=== PATIENT | male | born 1980 | race Caucasian/White ===

== ENCOUNTER 2017-08-23 17:38 | Inpatient (IN) | payer OTHER ==
[2017-08-23 17:44] VITALS: BMI 23.6
--- NOTE | 2017-08-23 22:06 | HP ---
COWS - Scale Resting Pulse: 0= [place] 80 or Below Sweatin= Chills/Flushing Restless Observation: 3= Extraneous Movement Pupil Size: 0= Normal to Room Light Bone or Joint Aches: 2= Severe Diffuse Aches Runny Nose/ Eye Tearin= Runny Nose/Eyes GI Upset > 30mins: 1= Stomach Cramp Tremor Observation: 2= Slight Tremor Visible Yawning Observation: 1= 1-2x During Session Anxiety or Irritability: 2=Irritable/Anxious Goose Flesh Skin: 0=Smooth Skin COWS Score: 14 CIWA Score - CIWA Score Nausea/Vomitin-Mild Nausea/No Vomiting Muscle Tremors: 4-Moderate,w/Arms Extend Anxiety: 4-Mod. Anxious/Guarded Agitation: 4-Moderately Restless Paroxysmal Sweats: 1-Minimal Palms Moist Orientation: 0-Oriented Tacttile Disturbances: 0-None Auditory Disturbances: 0-None Visual Disturbances: 0-None Headache: 0-None Present CIWA-Ar Total Score: 14 Admission [facility] - HPI Chief Complaint: WITHDRAWAL SX Allergies/Adverse Reactions: Allergies Allergy/AdvReac Type Severity Reaction Status Date / Time No Known Allergies Allergy Verified 09/04/15 16:00 History of Present Illness: 36 YEARS OLD MALE WITH LONG HISTORY OF ALCOHOL HEROIN NICOTINE DEPENDENCE HAS DEPRESSION IS ADMITTED TO DETOX Exam Limitations: No Limitations - Ebola screening Have you traveled outside of the country in the last 21 days: No Have you had contact with anyone from an Ebola affected area: No Have you been sick,other than usual withdrawal symptoms: No Do you have a fever: No - Review of Systems Constitutional: Chills, Loss of Appetite, Unintentional Wgt. Loss, Unexplained wgt Loss EENT: reports: Dental Problems (LEFT LOWER TOOTH LOOSE PAIN) Respiratory: reports: No Symptoms reported Cardiac: reports: No Symptoms Reported GI: reports: Nausea, Poor Appetite, Poor Fluid Intake, Indigestion, Abdominal cramping : reports: No Symptoms Reported Musculoskeletal: reports: Back Pain, Joint Pain, Muscle Pain, Neck Pain Integumentary: reports: Change in Color (BOTH INNER ELBOWS) Neuro: reports: Tremors Endocrine: reports: No Symptoms Reported Hematology: reports: No Symptoms Reported Psychiatric: reports: Judgement Intact, Orientated x3, Anxious, Depressed Other Systems: Reviewed and Negative Patient History - Patient Medical History Hx Anemia: No Hx Asthma: No Hx Chronic Obstructive Pulmonary Disease (COPD): No Hx Cancer: No Hx Cardiac Disorders: No Hx Congestive Heart Failure: No Hx Hypertension: No Hx Hypercholesterolemia: No Hx Pacemaker: No HX Cerebrovascular Accident: No Hx Seizures: No Hx Dementia: No Hx Diabetes: No Hx Gastrointestinal Disorders: No Hx Liver Disease: Yes Hx Genitourinary Disorders: No Hx Sexually Transmitted Disorders: No Hx Renal Disease (ESRD): No Hx Thyroid Disease: No Hx Human Immunodeficiency Virus (HIV): No Hx Hepatitis C: Yes (NEEDS TREATMENT) Hx Depression: No Hx Suicide Attempt: No Hx Bipolar Disorder: No Hx Schizophrenia: No - Patient Surgical History Past Surgical History: No - PPD History Previous Implant?: Yes Documented Results: Negative w/o proof Implanted On Prior [facility] Admission?: Yes Date: 09/06/15 PPD to be Administered?: Yes - Smoking Cessation Smoking history: Current every day smoker Have you smoked in the past 12 months: Yes Aproximately how many cigarettes per day: 40 Cigars Per Day: 0 Hx Chewing Tobacco Use: No Initiated information on smoking cessation: Yes 'Breaking Loose' booklet given: 08/23/17 - Substance & Tx. History Hx Alcohol Use: Yes Hx Substance Use: Yes Substance Use Type: Alcohol, Cocaine, Heroin Hx Substance Use Treatment: Yes (2015) - Substances Abused Alcohol Route: Oral Frequency: Daily Amount used: [id number] Age of first use: 9 Date of Last Use: 08/22/17 Heroin Route: Injection Frequency: Daily Amount used: 15 BAGS Age of first use: 12 Date of Last Use: 08/23/17 Family Disease History - Family Disease History Family Disease History: Diabetes: Grandparent, Mother (ALCOHOL/NO CONTACT), Heart Disease: Father (SC X2), Other: Mother, Brother (ALCOHOL/NO CONTACT) Admission Physical Exam [facility] - Vital Signs Vital Signs: Vital Signs - 24 hr 08/23/17 17:41 Temperature 98.8 F Pulse Rate 73 Respiratory 18 Rate Blood Pressure 140/88 - Physical General Appearance: Yes: Appropriately Dressed, Mild Distress, Thin, Tremorous, Irritable, Sweating, Anxious HEENTM: Yes: Hearing grossly Normal, Normal ENT Inspection, Normocephalic, Normal Voice, Other (LEFT LOWER TOOTH ACHE BEGIN AMXOCILLINE 500 MG Q8H X 7 DAYS LIDOCAIN MM TID) Respiratory: Yes: Chest Non-Tender, Lungs Clear, Normal Breath Sounds, No Respiratory Distress, No Accessory Muscle Use Neck: Yes: Supple, Trachea in good position Breast: Yes: Breasts Symetrical Cardiology: Yes: Regular Rhythm, Regular Rate, S1, S2 Abdominal: Yes: Non Tender, Soft, Increased Bowel Sounds Genitourinary: Yes: Within Normal Limits Back: Yes: Normal Inspection Musculoskeletal: Yes: full range of Motion, Gait Steady, Back pain, Muscle Pain Extremities: Yes: Normal Range of Motion, Non-Tender, Tremors Neurological: Yes: Alert, Motor Strength 5/5, Normal Mood/Affect, Normal Response Integumentary: Yes: Warm, Track Cardozo Lymphatic: Yes: Within Normal Limits - Diagnostic (1) Nicotine dependence Current Visit: Yes Status: Acute Qualifiers: Nicotine product type: cigarettes Substance use status: in withdrawal Qualified Code(s): F17.213 - Nicotine dependence, cigarettes, with withdrawal (2) Weight loss Current Visit: Yes Status: Acute (3) Hepatitis C Current Visit: Yes Status: Chronic Qualifiers: Viral hepatitis chronicity: carrier Qualified Code(s): B18.2 - Chronic viral hepatitis C (4) GERD (gastroesophageal reflux disease) Current Visit: Yes Status: Chronic Qualifiers: Esophagitis presence: without esophagitis Qualified Code(s): K21.9 - Gastro -esophageal reflux disease without esophagitis (5) Alcohol dependence with uncomplicated withdrawal Current Visit: Yes Status: Acute (6) Opioid dependence with withdrawal Current Visit: Yes Status: Acute Cleared for Admission S - Detox or Rehab [facility] Level of Care: Medically Managed Detox Regimen/Protocol: Methadone/Librium [facility] Breath Alcohol Content Breath Alcohol Content: 0 Urine Drug Screen - Results Drug Screen Negative: No Urine Drug Screen Results: KASSIDY-Cocaine, OPI-Opiates
[2017-08-23] MEDS ORDERED: LOPERAMIDE HCL 2 MG CAPSULE PO PRN (22:12)
[2017-08-23] MEDS ORDERED: guaiFENesin/D-METHORPHAN HB 10 ML UNIT-DOSE CUPS PO PRN (22:12)
[2017-08-23] MEDS ORDERED: METHADONE HCL 10 MG TABLET (FOR DETOX USE ONLY) PO ONE ×2 (22:12→23:00)
[2017-08-23] MEDS ORDERED: MAG HYDROX/AL HYDROX/SIMETH 30 ML UNIT-DOSE CUP PO PRN (22:12)
[2017-08-23] MEDS ORDERED: IBUPROFEN 400 MG TABLET (FP) PO PRN (22:12)
[2017-08-23] MEDS ORDERED: MAGNESIUM CITRATE 300 ML BOTTLE PO PRN (22:12)
[2017-08-23] MEDS ORDERED: MAGNESIUM HYDROX 2400MG/30ML ORAL SUSPENSION 30 ML CUP PO PRN (22:12)
[2017-08-23] MEDS ORDERED: NICOTINE POLACRILEX 4 MG GUM BC PRN (22:12)
[2017-08-23] MEDS ORDERED: P-EPHED 60MG/TRIPROLIDI 2.5MG TABLET PO PRN (22:12)
[2017-08-23] MEDS ORDERED: MENTHOL/PHENOL 1 EACH UD MM PRN (22:12)
[2017-08-23] MEDS: chlordiazePOXIDE HCL 25 MG CAPSULE PO SCH (23:22)
[2017-08-23] MEDS: AMOXICILLIN 500 MG CAPSULE (FP) PO SCH (23:22)
[2017-08-23] MEDS: cloNIDine HCL 0.1 MG TABLET PO PRN (23:22)
[2017-08-23] MEDS: ACETAMINOPHEN 325 MG TABLET (FP) PO PRN (23:23)
[2017-08-24 05:04] LABS: URINE APPEARANCE CLOUDY; URINE BILIRUBIN NEGATIVE (NEGATIVE); URINE BLOOD NEGATIVE (NEGATIVE); URINE COLOR YELLOW; URINE GLUCOSE (UA) NEGATIVE (NEGATIVE); URINE KETONE NEGATIVE (NEGATIVE); URINE LEUK ESTERASE NEGATIVE (NEGATIVE); URINE NITRITE NEGATIVE (NEGATIVE); URINE PROTEIN NEGATIVE (NEGATIVE)
[2017-08-24] MEDS: chlordiazePOXIDE HCL 25 MG CAPSULE PO SCH ×4 (05:56→22:39)
[2017-08-24] MEDS: METHOCARBAMOL 500 MG TABLET PO SCH ×3 (05:57→22:39)
[2017-08-24] MEDS: AMOXICILLIN 500 MG CAPSULE (FP) PO SCH ×3 (05:57→22:39)
[2017-08-24] MEDS ORDERED: METHADONE HCL 10 MG TABLET (FOR DETOX USE ONLY) PO SCH (10:00)
[2017-08-24 10:23] LABS: CHLORIDE 104 mmol/L (98-107); SODIUM 139 mmol/L (136-145)
[2017-08-24] MEDS: NICOTINE 21 MG/24 HOURS TOPICAL PATCH TD SCH (10:28)
[2017-08-24] MEDS: RANITIDINE HCL 150 MG TABLET (FP) PO SCH ×2 (10:28→22:39)
[2017-08-24] MEDS: PRENATAL VITAMINS W/ FOLIC ACID TABLET (FP) PO SCH (10:28)
--- NOTE | 2017-08-24 10:28 | PN ---
[facility] CIWA - CIWA Score Nausea/Vomitin-No Nausea/No Vomiting Muscle Tremors: 4-Moderate,w/Arms Extend Anxiety: 3 Agitation: 3 Paroxysmal Sweats: 3 Orientation: 0-Oriented Tacttile Disturbances: 0-None Auditory Disturbances: 0-None Visual Disturbances: 0-None Headache: 0-None Present CIWA-Ar Total Score: 13 BHS COWS - Scale Resting Pulse: 0= [place] 80 or Below Sweatin=Flushed/Facial Moisture Restless Observation: 1= Difficult to Sit Still Pupil Size: 0= Normal to Room Light Bone or Joint Aches: 2= Severe Diffuse Aches Runny Nose/ Eye Tearin= Runny Nose/Eyes GI Upset > 30mins: 2= Nausea/Diarrhea Tremor Observation of Outstretched Hands: 2= Slight Tremor Visible Yawning Observation: 1= 1-2x During Session Anxiety or Irritability: 2=Irritable/Anxious Goose Flesh Skin: 3=Piloerection COWS Score: 17 S Progress Note (SOAP) Subjective: shakes sweats agitation anxiety body aches interrupted sleep Objective: 08/24/17 10:27 Vital Signs Temperature 98.6 F 08/24/17 10:00 Pulse Rate 66 08/24/17 10:00 Respiratory Rate 16 08/24/17 10:00 Blood Pressure 149/83 08/24/17 10:00 O2 Sat by Pulse Oximetry (%) Laboratory Tests 08/23/17 06:30 Urine Color Yellow Urine Appearance Cloudy Urine pH 7.0 Ur Specific [place] 1.023 Urine Protein Negative Urine Glucose (UA) Negative Urine Ketones Negative Urine Blood Negative Urine Nitrite Negative Urine Bilirubin Negative Urine Urobilinogen 2.0 Ur Leukocyte Esterase Negative labs pending aaox3 ambulating no acute distress Assessment: 08/24/17 10:27 withdrawal sx Plan: continue detox increase fluids labs pending
[2017-08-24 10:31] LABS: HEMATOCRIT 43.6 % (35.4-49); HEMOGLOBIN 14.2 GM/dL (11.7-16.9); MCH 28.8 pg (25.7-33.7); MCHC 32.5 g/dl (32.0-35.9); MEAN CELL VOLUME 88.4 fl (80-96); MEAN PLT VOLUME 8.6 fl (7.5-11.1); PLATELET COUNT 283 K/MM3 (134-434); RBC 4.92 M/mm3 (4.00-5.60); RDW 14.1 % (11.9-15.9); WHITE BLOOD COUNT 7.9 K/mm3 (4.0-10.0)
[2017-08-24 10:38] LABS: ALBUMIN 3.3 g/dl (3.4-5.0); ALK PHOS 102 U/L (45-117); ANION GAP 8 (8-16); BILIRUBIN,TOTAL 0.6 mg/dL (0.2-1.0); BLOOD UREA NITROGEN 16 mg/dL (7-18); CALCIUM 8.7 mg/dL (8.5-10.1); CO2 27 mmol/L (21-32); CREATININE 0.7 mg/dL (0.7-1.3); GLUCOSE,RANDOM 90 mg/dL (74-106); SGOT/AST 30 U/L (15-37); SGPT/ALT 42 U/L (12-78); TOT PROT 7.2 g/dl (6.4-8.2)
[2017-08-24] MEDS: chlordiazePOXIDE HCL 25 MG CAPSULE PO PRN (13:32)
[2017-08-24] MEDS ORDERED: ONDANSETRON *ODT* 4 MG TABLET SL PRN (15:01)
--- NOTE | 2017-08-24 15:18 | EKG ---
Test Reason : Blood Pressure : / mmHG Vent. Rate : 060 BPM Atrial Rate : 060 BPM P-R Int : 154 ms QRS Dur : 078 ms QT Int : 404 ms P-R-T Axes : 066 022 052 degrees QTc Int : 404 ms NORMAL SINUS RHYTHM NORMAL ECG NO PREVIOUS ECGS AVAILABLE Confirmed by Haresh Adam MD ([id number]) on 08/24/2017 3:18:35 PM Referred By: Confirmed By:Haresh Adam MD
[2017-08-24] MEDS ORDERED: TRIMETHOBENZAMIDE HCL 200MG/2ML INJ IM PRN (15:30)
--- NOTE | 2017-08-24 15:39 | CONSULT ---
[facility] Psychiatric Consult - Data Date of interview: 08/24/17 Admission source: [facility] Identifying data: Readmission to [facility] for this 36 y/o male seeking detox treatment on for heroin,cocaine and alcohol dependence.Patient is single,a father of one,domiciled,unemployed and supported on SSI benefits. Substance Abuse History: Discussed with patient.History confirmed in this session.See details in current [facility] report : Smoking history: Current every day smoker. Have you smoked in the past 12 months: Yes. Aproximately how many cigarettes per day: 40. Cigars Per Day: 0. Hx Chewing Tobacco Use: No. Initiated information on smoking cessation: Yes. 'Breaking Loose' booklet given : 08/23/17. - Substance & Tx. History. Hx Alcohol Use: Yes. Hx Substance Use : Yes. Substance Use Type: Alcohol, Cocaine, Heroin. Hx Substance Use Treatment: Yes (2016). - Substances Abused. Alcohol. Route: Oral. Frequency: Daily. Amount used: [id number]. Age of first use: 9. Date of Last Use: 08/22/17. Heroin. Route: Injection. Frequency: Daily. Amount used: 15 BAGS. Age of first use: 12. Date of Last Use: 08/23/17 Medical History: Patient endorses good general health. Psychiatric History: Patient admits to a remote history of one psychiatric hospitalization at [facility].Was diagnosed at the time with MDD.Mr South declares that he has been off psychotropic medications for years. " I don't even recall the last time I took medications." Denies history of suicide attempts. Physical/Sexual Abuse/Trauma History: Patient denies. Additional Comment: Urine Drug Screen Results: KASSIDY-Cocaine, OPI-Opiates.Noted. Mental Status Exam - Mental Status Exam Alert and Oriented to: Time, Place, Person Cognitive Function: Good Patient Appearance: Well Groomed Mood: Hopeful, Euthymic Affect: Appropriate, Normal Range Patient Behavior: Fatigued, Appropriate Speech Pattern: Clear, Appropriate Voice Loudness: Normal Thought Process: Intact, Goal Oriented Thought Disorder: Not Present Hallucinations: Denies Suicidal Ideation: Denies Homicidal Ideation: Denies Insight/Judgement: Poor Sleep: Poorly, Difficulty falling asleep Appetite: Good Muscle strength/Tone: Normal Gait/Station: Normal Psychiatric Findings - Problem List ([place] 1, 2,3) (1) Alcohol dependence with uncomplicated withdrawal Current Visit: Yes Status: Acute (2) Opioid dependence with withdrawal Current Visit: Yes Status: Acute (3) Cocaine dependence, uncomplicated Current Visit: Yes Status: Acute (4) Nicotine dependence Current Visit: Yes Status: Acute Qualifiers: Nicotine product type: cigarettes Substance use status: uncomplicated Qualified Code(s): F17.210 - Nicotine dependence, cigarettes, uncomplicated (5) Drug-induced mood disorder Current Visit: Yes Status: Suspected (6) Insomnia Current Visit: Yes Status: Acute - Initial Treatment Plan Initial Treatment Plan: Psychoeducation and support provided in this session.Sleep hygiene discussed.Detoxification in progress.Ambien 10 mg po hs prn.Ordered at patient's request.Made aware of potential for parasomnias (sleep- walking).Mr South has verbalized his agreement to this careplan.Observation.
[2017-08-24] MEDS: THIAMINE HCL 100 MG TABLET (FP) PO SCH (22:38)
[2017-08-24] MEDS: ZOLPIDEM TARTRATE 10 MG TABLET (PARK CARE ONLY) PO PRN (22:39)
[2017-08-24] MEDS: cloNIDine HCL 0.1 MG TABLET PO PRN (22:39)
[2017-08-25] MEDS: AMOXICILLIN 500 MG CAPSULE (FP) PO SCH ×3 (06:35→22:55)
[2017-08-25] MEDS: METHOCARBAMOL 500 MG TABLET PO SCH ×3 (06:35→22:55)
[2017-08-25] MEDS: chlordiazePOXIDE HCL 25 MG CAPSULE PO SCH ×3 (06:35→18:52)
[2017-08-25] MEDS ORDERED: METHADONE HCL 5 MG TABLET (FOR DETOX USE ONLY) PO SCH (10:00)
[2017-08-25] MEDS: PRENATAL VITAMINS W/ FOLIC ACID TABLET (FP) PO SCH (10:54)
[2017-08-25] MEDS: RANITIDINE HCL 150 MG TABLET (FP) PO SCH ×2 (10:54→22:55)
[2017-08-25] MEDS: NICOTINE 21 MG/24 HOURS TOPICAL PATCH TD SCH (10:54)
[2017-08-25] MEDS: cloNIDine HCL 0.1 MG TABLET PO PRN (13:46)
[2017-08-25] MEDS: chlordiazePOXIDE HCL 25 MG CAPSULE PO PRN (13:46)
--- NOTE | 2017-08-25 14:13 | PN ---
S CIWA - CIWA Score Nausea/Vomitin-No Nausea/No Vomiting Muscle Tremors: 4-Moderate,w/Arms Extend Anxiety: 3 Agitation: 3 Paroxysmal Sweats: 3 Orientation: 0-Oriented Tacttile Disturbances: 0-None Auditory Disturbances: 0-None Visual Disturbances: 0-None Headache: 0-None Present CIWA-Ar Total Score: 13 [facility] COWS - Scale Resting Pulse: 0= [place] 80 or Below Sweatin= Chills/Flushing Restless Observation: 1= Difficult to Sit Still Pupil Size: 0= Normal to Room Light Bone or Joint Aches: 2= Severe Diffuse Aches Runny Nose/ Eye Tearin= Nasal Congestion GI Upset > 30mins: 0= None Tremor Observation of Outstretched Hands: 2= Slight Tremor Visible Yawning Observation: 2= >3x During Session Anxiety or Irritability: 2=Irritable/Anxious Goose Flesh Skin: 0=Smooth Skin COWS Score: 11 S Progress Note (SOAP) Subjective: sweats tooth ache agitation Objective: 08/25/17 14:12 Vital Signs Temperature 97.3 F L 08/25/17 10:00 Pulse Rate 108 H 08/25/17 10:00 Respiratory Rate 18 08/25/17 10:00 Blood Pressure 140/103 08/25/17 10:00 O2 Sat by Pulse Oximetry (%) Laboratory Tests 08/23/17 08/24/17 08/24/17 06:30 08:00 08:00 WBC 7.9 RBC 4.92 Hgb 14.2 Hct 43.6 MCV 88.4 MCH 28.8 MCHC 32.5 RDW 14.1 Plt Count 283 MPV 8.6 Sodium 139 Potassium 4.0 Chloride 104 Carbon Dioxide 27 Anion Gap 8 BUN 16 Creatinine 0.7 Creat Clearance w eGFR > 60 Random Glucose 90 Calcium 8.7 Total Bilirubin 0.6 D AST 30 D ALT 42 D Alkaline Phosphatase 102 Total Protein 7.2 Albumin 3.3 L Urine Color Yellow Urine Appearance Cloudy Urine pH 7.0 Ur Specific [place] 1.023 Urine Protein Negative Urine Glucose (UA) Negative Urine Ketones Negative Urine Blood Negative Urine Nitrite Negative Urine Bilirubin Negative Urine Urobilinogen 2.0 Ur Leukocyte Esterase Negative RPR Titer HIV 1&2 Antibody Screen HIV P24 Antigen 08/24/17 08/24/17 08:00 08:00 WBC RBC Hgb Hct MCV MCH MCHC RDW Plt Count MPV Sodium Potassium Chloride Carbon Dioxide Anion Gap BUN Creatinine Creat Clearance w eGFR Random Glucose Calcium Total Bilirubin AST ALT Alkaline Phosphatase Total Protein Albumin Urine Color Urine Appearance Urine pH Ur Specific [place] Urine Protein Urine Glucose (UA) Urine Ketones Urine Blood Urine Nitrite Urine Bilirubin Urine Urobilinogen Ur Leukocyte Esterase RPR Titer Nonreactive HIV 1&2 Antibody Screen Negative HIV P24 Antigen Negative aaox3 ambulating no acute distress Assessment: 08/25/17 14:13 withdrawal sx Plan: continue detox increase fluids clonidine 0.1 x one
[2017-08-25] MEDS ORDERED: cloNIDine HCL 0.1 MG TABLET PO ONE (14:56)
[2017-08-25] MEDS: LIDOCAINE VISCOUS 2% ORAL/TOP 20 ML UNIT-DOSE CUP MM PRN (19:21)
[2017-08-25] MEDS: ACETAMINOPHEN 325 MG TABLET (FP) PO PRN (19:46)
[2017-08-25] MEDS: ZOLPIDEM TARTRATE 10 MG TABLET (PARK CARE ONLY) PO PRN (22:55)
[2017-08-25] MEDS: cloNIDine HCL 0.1 MG TABLET PO SCH (22:55)
[2017-08-25] MEDS: THIAMINE HCL 100 MG TABLET (FP) PO SCH (22:55)
[2017-08-25] MEDS: chlordiazePOXIDE 5 MG CAPSULE PO SCH (22:55)
[2017-08-26] MEDS: chlordiazePOXIDE 5 MG CAPSULE PO SCH ×3 (05:44→17:38)
[2017-08-26] MEDS: AMOXICILLIN 500 MG CAPSULE (FP) PO SCH ×3 (05:44→22:40)
[2017-08-26] MEDS: METHOCARBAMOL 500 MG TABLET PO SCH ×3 (05:44→22:40)
[2017-08-26] MEDS: ACETAMINOPHEN 325 MG TABLET (FP) PO PRN ×2 (05:47→23:05)
[2017-08-26] MEDS: LIDOCAINE VISCOUS 2% ORAL/TOP 20 ML UNIT-DOSE CUP MM PRN ×2 (06:18→23:06)
--- NOTE | 2017-08-26 09:31 | PN ---
[facility] Progress Note (SOAP) Subjective: anxiety feeling so much better I would like to leave early I have an opportunity to go to rehab tomorrow so I would like to leave tomorrow. Objective: 08/26/17 09:31 Vital Signs Temperature 98.3 F 08/26/17 06:23 Pulse Rate 60 08/26/17 06:23 Respiratory Rate 16 08/26/17 06:23 Blood Pressure 139/88 08/26/17 06:23 O2 Sat by Pulse Oximetry (%) Laboratory Tests 08/23/17 08/24/17 08/24/17 06:30 08:00 08:00 WBC 7.9 RBC 4.92 Hgb 14.2 Hct 43.6 MCV 88.4 MCH 28.8 MCHC 32.5 RDW 14.1 Plt Count 283 MPV 8.6 Sodium 139 Potassium 4.0 Chloride 104 Carbon Dioxide 27 Anion Gap 8 BUN 16 Creatinine 0.7 Creat Clearance w eGFR > 60 Random Glucose 90 Calcium 8.7 Total Bilirubin 0.6 D AST 30 D ALT 42 D Alkaline Phosphatase 102 Total Protein 7.2 Albumin 3.3 L Urine Color Yellow Urine Appearance Cloudy Urine pH 7.0 Ur Specific [place] 1.023 Urine Protein Negative Urine Glucose (UA) Negative Urine Ketones Negative Urine Blood Negative Urine Nitrite Negative Urine Bilirubin Negative Urine Urobilinogen 2.0 Ur Leukocyte Esterase Negative RPR Titer HIV 1&2 Antibody Screen HIV P24 Antigen 08/24/17 08/24/17 08:00 08:00 WBC RBC Hgb Hct MCV MCH MCHC RDW Plt Count MPV Sodium Potassium Chloride Carbon Dioxide Anion Gap BUN Creatinine Creat Clearance w eGFR Random Glucose Calcium Total Bilirubin AST ALT Alkaline Phosphatase Total Protein Albumin Urine Color Urine Appearance Urine pH Ur Specific [place] Urine Protein Urine Glucose (UA) Urine Ketones Urine Blood Urine Nitrite Urine Bilirubin Urine Urobilinogen Ur Leukocyte Esterase RPR Titer Nonreactive HIV 1&2 Antibody Screen Negative HIV P24 Antigen Negative aaox3 ambulating no acute distress Assessment: 08/26/17 09:31 mild withdrawal sx Plan: continue detox d/c in am
[2017-08-26] MEDS: cloNIDine HCL 0.1 MG TABLET PO SCH ×2 (10:00→22:40)
[2017-08-26] MEDS ORDERED: METHADONE HCL 5 MG TABLET (FOR DETOX USE ONLY) PO ONE (10:15)
[2017-08-26] MEDS: RANITIDINE HCL 150 MG TABLET (FP) PO SCH ×2 (11:00→22:40)
[2017-08-26] MEDS: PRENATAL VITAMINS W/ FOLIC ACID TABLET (FP) PO SCH (11:42)
[2017-08-26] MEDS: NICOTINE 21 MG/24 HOURS TOPICAL PATCH TD SCH (11:42)
[2017-08-26] MEDS: THIAMINE HCL 100 MG TABLET (FP) PO SCH (22:40)
[2017-08-26] MEDS: ZOLPIDEM TARTRATE 10 MG TABLET (PARK CARE ONLY) PO PRN (22:40)
[2017-08-26] MEDS: chlordiazePOXIDE HCL 10 MG CAPSULE PO SCH (22:41)
[2017-08-27] MEDS ORDERED: IBUPROFEN 400 MG TABLET (FP) PO PRN ×2 (00:56→01:08)
[2017-08-27] MEDS ORDERED: hydrOXYzine PAMOATE 50 MG CAPSULE (FP) PO PRN ×2 (00:57→01:09)
[2017-08-27] MEDS ORDERED: METHADONE HCL 10 MG TABLET (FOR DETOX USE ONLY) PO SCH ×2 (06:00→10:00)
[2017-08-27] MEDS ORDERED: METHADONE HCL 5 MG TABLET (FOR DETOX USE ONLY) PO SCH (06:00)
[2017-08-27] MEDS: chlordiazePOXIDE HCL 10 MG CAPSULE PO SCH (06:12)
[2017-08-27] MEDS: AMOXICILLIN 500 MG CAPSULE (FP) PO SCH (06:13)
[2017-08-27] MEDS: METHOCARBAMOL 500 MG TABLET PO SCH (06:13)
[2017-08-27 06:32] VITALS: BP 139/75
--- NOTE | 2017-08-27 09:45 | DS ---
[facility] Detox Discharge Summary Admission Date: 08/23/17 Discharge Date: 08/27/17 - History Present History: Alcohol Dependence, Opioid Dependence Additional Comments: follow up with after care program as arrangement Pertinent Past History: hepatitis c nicotine dependence gerd weight loss - Physical Exam Results Vital Signs: Vital Signs Temperature 98.1 F 08/27/17 06:00 Pulse Rate 74 08/27/17 06:00 Respiratory Rate 18 08/27/17 06:00 Blood Pressure 139/75 08/27/17 06:00 O2 Sat by Pulse Oximetry (%) Pertinent Admission Physical Exam Findings: withdrawal symptom and findings - Treatment Hospital Course: Detox Protocol Followed, Detoxed Safely, Responded well, Discharged Condition Good Patient has Accepted a Rehab Referral to: declined - Medication Discharge Medications: Ambulatory Orders NK [No Known Home Medication] 08/23/17 - AMA Did Patient Leave Against Medical Advice: No
[2017-08-27 10:38] VITALS: PULSE 80; TEMP 96.8
[2017-08-28] MEDS ORDERED: METHADONE HCL 5 MG TABLET (FOR DETOX USE ONLY) PO SCH (06:00)
== END 2017-08-27 09:55 | disposition home or self-care (01) | DRG 773 ==
LOC: YASAS 17:38 → Y6N 20:46
PROVIDERS: ADMIT Internal Medicine; ATTEND Internal Medicine
PROC: HZ2ZZZZ Detoxification Services for Substance Abuse Treatment (ICD-10-PCS; principal; 2017-08-23)
DX: F11.23 Opioid dependence with withdrawal (principal); F10.230 Alcohol dependence with withdrawal, uncomplicated; F14.20 Cocaine dependence, uncomplicated; F17.210 Nicotine dependence, cigarettes, uncomplicated; B18.2 Chronic viral hepatitis C; G47.00 Insomnia, unspecified; K21.9 Gastro-esophageal reflux disease without esophagitis; R63.4 Abnormal weight loss; Z68.23 Body mass index [BMI] 23.0-23.9, adult
CPT/HCPCS: 36415; 80053; 81003; 85027; 86593; 87389; 93005; 93010